=== PATIENT | female | born 2005 | race Two or more races ===

== ENCOUNTER 2024-08-24 13:58 | Emergency (ER) | payer OTHER, SELFPAY ==
[2024-08-24 14:07] VITALS: BP 126/73
[2024-08-24 14:22] LABS: % Basophils 0.9 % (0-2); % Eosinophils 3.4 % (0-6); % Immature Granulocytes 0.1 % (0-0.5); % Lymphocytes 43.5 % (20.5-51.1); % Monocytes 7.7 % (1.7-9.3); % Neutrophils 44.4 % (42.2-75.2); Absolute Basophils 0.1 10^3/uL (0-0.2); Absolute Eosinophils 0.3 10^3/uL (0-0.7); Absolute Lymphocytes 3.6 10^3/uL (1.2-3.4); Absolute Monocytes 0.6 10^3/uL (0.1-0.6); Absolute Neutrophils 3.6 10^3/uL (1.4-6.5); Hematocrit 36.8 % (37.0-47.0); Hemoglobin 12.5 g/dL (12.0-16.0); Mean Corpuscular Hgb 29.2 pg (27.0-31.0); Mean Platelet Volume 10.5 fL (7.4-10.4); Nucleated Red Blood Cells % 0 %; Platelet Count 250 10^3/uL (130-400); Red Blood Cell Count 4.28 10^6/uL (4.20-5.40); Red Cell Dist. Width 12.3 % (11.5-14.5); White Blood Cell Count 8.2 10^3/uL (4.8-10.8)
[2024-08-24 14:36] LABS: D-Dimer 0.39 ug/mlFEU (0.00-0.50)
[2024-08-24 14:40] LABS: ALT (SGPT) 36 U/L (0-35); AST (SGOT) 33 U/L (14-36); Albumin 4.7 g/dl (3.5-5.0); Alkaline Phosphatase 65 U/L (38-126); Blood Urea Nitrogen 11 mg/dl (7-17); Calcium 10.1 mg/dl (8.4-10.2); Carbon Dioxide 15 mmol/L (22-30); Chloride 105 mmol/L (98-107); Glucose 102 mg/dl (70-99); Potassium 3.4 mmol/L (3.5-5.1); Sodium 134 mmol/L (135-145); Total Bilirubin 0.8 mg/dl (0.2-1.3); Total Protein 7.5 g/dl (6.3-8.2); eGFR > 60.00
[2024-08-24 14:50] LABS: Troponin I 0.022 ng/ml
[2024-08-24 17:43] LABS: Troponin I < 0.012 ng/ml
[2024-08-24 18:18] VITALS: BP 112/75; BP 120/73; BP 120/74; PULSE 63; PULSE 72; PULSE 80
[2024-08-24 18:20] VITALS: BP 136/80
--- NOTE | 2024-08-24 23:26 | ED.GENMED ---
History of Present Illness
General
Chief Complaint: Chest Pain
Source: patient
Exam Limitations: none
Time Seen by Provider: 08/24/24 16:24
Nursing documentation reviewed up to this point in time: agreed with
History of Present Illness
History of Present Illness:
Patient to ED with complaint of chest pain. States pain started after working out at gym. She tried to take a shower when she got home but the pain became worse. Denies any n/v/diaphoresis. States she felt like her heart was racing. Brought to
ED by mother for eval. No prior history of same.
Past History
Past History
ED Past Medical History: None
ED Past Surgical History: None
Review of Systems
Review of Systems
Allergies reviewed?: Yes
All Other Systems: ROS reviewed and negative except as documented in HPI and ROS
Constitutional: Reports no symptoms
EENT: Reports no symptoms
Respiratory: Reports no symptoms
Cardiac: Reports chest pain and palpitations
ABD/GI: Reports no symptoms
: Reports no symptoms
Musculoskeletal: Reports no symptoms
Skin: Reports no symptoms
Neurological: Reports no symptoms
Psychiatric: Reports no symptoms
Phy Exam
General Physical Exam
General Presentation: well appearing and no apparent distress
General age: appears stated age
General Skin: warm and dry
General Habitus: normal
Cardiovascular Exam
Cardiovascular Exam: regular rate/rhythm
Pulmonary Exam
Pulmonary Exam: lungs clear and no respiratory distress
Gastrointestinal Exam
Gastrointestinal Exam: normal bowel sounds and non tender
Musculoskeletal Exam
Musculoskeletal Exam: full ROM and neuro vasc intact
Skin Exam
Skin Exam: normal color, warm/dry and no rash
Psychiatric Exam
Psychiatric Exam: normal mood/affect
Scores
Heart Score for Chest Pain Patients
STEMI patient?: Not applicable
Course
Orders/Labs/Results
Orders:
Orders
08/24/24 14:00
Electrocardiogram (*1) Urgent
Reason for Study: Chest Pain
08/24/24 14:01
EKG- Treatment ONCE
08/24/24 14:10
CR Chest - 2 Views Urgent
Comment:
Reason For Exam: chest pain
08/24/24 14:15
Complete Blood Count/With Diff Urgent
Comprehensive Metabolic Panel Urgent
D-Dimer Urgent
Troponin I Urgent
08/24/24 16:48
Orthostatic VS- Treatment ONCE
08/24/24 17:09
Troponin I Urgent
Abnormal Lab Results
08/24/24
14:15
Hct 36.8 L %
(37.0-47.0)
MPV 10.5 H fL
(7.4-10.4)
Absolute Lymphs (auto) 3.6 H 10^3/uL
(1.2-3.4)
Sodium 134 L mmol/L
(135-145)
Potassium 3.4 L mmol/L
(3.5-5.1)
Carbon Dioxide 15 L mmol/L
(22-30)
Glucose 102 H mg/dl
(70-99)
ALT 36 H U/L
(0-35)
08/24/24 14:15
08/24/24 14:15
Vital Signs
Initial and Last Documented VS:
Initial Vital Signs
Temp Pulse Resp BP Pulse Ox
98.1 F 95 20 126/73 99
08/24/24 14:07 08/24/24 14:07 08/24/24 14:07 08/24/24 14:07 08/24/24 14:07
Last Documented Vital Signs
Temp Pulse Resp BP Pulse Ox
98.1 F 71 18 136/80 100
08/24/24 14:07 08/24/24 18:20 08/24/24 18:20 08/24/24 18:20 08/24/24 18:20
*Radiology
Radiology exam reviewed: radiology read reviewed
*Critical Care Note
Total Time (30-74mins, 75-104mins- exclusive of procedures): Not Applicable
Update Note
Update Note:
Patient to ED for report of chest pain after gym today. No pain on exam today. VSS, labs, cxr and ekg reiewed, no concerning findings. She is discharged home and will follow up with PCP on Tuesday. iven instructions on s/s to return to ED and she
is agreeable to plan
ED Attending Note
-
Portions of this chart may have been created with voice recognition software.� Occasional wrong word or��sound alike� substitutions may have occurred due to the inherent limitations of voice recognition software.
Discharge Plan
Departure
Patient Disposition: Home (Routine Discharge)
Date of Disposition: 08/24/24
Time of Disposition: 17:46
Patient with high blood pressure during this ER visit?: No
Condition: Good
Covid-19: Not Applicable
Discharge Problem:
Chest pain
Instructions: Chest Pain PCP Follow Up
Referrals:
Arnold Vogel MD [Family Provider] -
Activity Restrictions/Additional Instructions:
Call on Tuesday to schedule a follow up appointment with your dust mop maker. Return to the emergency department immediately for any changes in/worsening of your symptoms
Interventions
Interventions:
*Risk Screen - Suicide Last Done: 08/24/24 18:20
*General Assessment Last Done: 08/24/24 14:07
*Neglect/Abuse Screening Last Done: 08/24/24 18:20
*ED COVID-19 Vaccine History Last Done: 08/24/24 15:18
*Nursing Disposition Last Done: 08/24/24 18:20
ED- Cardiac Assessment Last Done: 08/24/24 15:18
Discharge Date and Time
Discharge Date/Time: 08/24/24 18:23
Print Language: DIVEHI
== END 2024-08-24 18:23 | disposition home or self-care (01) ==
LOC: EMR 13:58
PROVIDERS: Nurse Practitioner; EMERGENCY PHYSICIAN Student in an Organized Health Care Education/Training Program; FAMILY PHYSICIAN Internal Medicine
DX: R07.89 Other chest pain (principal)
CPT/HCPCS: 99285; 71046; 80053; 84484; 85025; 85379; 93005